=== PATIENT | female | born 1955 | race Caucasian/White ===

== ENCOUNTER 2016-06-05 09:31 | Inpatient (IN) | payer OTHER ==
[~2016-06-05] VITALS: Ht 157.5 cm; Wt 74.8 kg
[~2016-06-05 09:31] MED LIST: ALPRAZOLAM0.5 MG PO; ASPIRIN EC81 M1 PO; CRESTOR40 M1 PO; FOSAMAX10 MG PO; GOOD SENSE ASP325 MG PO; IMITREX50 MG PO; LEXAPRO 10MG10 MG PO; MAGNESIUM200 MG PO; PERCOCET 325 MG1 TA2 PO; VITAMIN B225 MG PO; VITAMIN D31000 IU PO
--- NOTE | 2016-06-05 09:35 | NUR ---
TO EKG ALCMARTA
--- NOTE | 2016-06-05 09:43 | NUR ---
PT TO ED C/O WEAKNESS, HEADACHE AND MULTIPLE FALLS LATELY. STATES "I'VE BEEN WOBBLY". STATES LAST FALL WAS AT 0400 THIS AM. STATES SHE IS UNSURE IF SHE WAS DIZZY PRIOR TO FALLING BECAUSE IT WAS DARK. STATES SHE HIT HER HEAD ON AN END TABLE. UNSURE IF ANY LOC. ALSO C/O NAUSEA. EKG DONE. PT TEARFUL.
--- NOTE | 2016-06-05 09:57 | ED SYNCOPE COMPLAINT ---
History of Present Illness General Chief Complaint: General Adult Stated Complaint: ?SYNCOPE LAST PM; DOESNT REMEMBER FALLING Source: patient Exam Limitations: no limitations Vital Signs & Intake/Output Vital Signs & Intake/Output Vital Signs Date Time Temp Pulse Resp B/P Pulse O2 O2 Flow FiO2 Ox Delivery Rate 06/07 0609 98.1 74 20 130/60 94 CPAP 06/06 2240 94 06/06 2229 98.9 90 18 135/66 94 ED Intake and Output 06/07 0000 06/06 1200 Intake Total 2760 450 Output Total 475 200 Balance 2285 250 Intake, IV 900 450 Intake, Oral 1860 Number 0 Bowel Movements Output, Urine 475 200 Allergies Coded Allergies: codeine (NAUSEA 06/05/16) Reconcile Medications Alendronate Sodium 70 MG TABLET 1 TAB PO QSUN OSTEOPOROSIS (Reported) in the morning, at least 30 minutes before the first food, beverage, or medication of the day Alprazolam 0.5 MG TABLET 1 TAB PO BID PRN ANXIETY (Reported) Aspirin (Ecotrin*) 81 MG TABLET.DR 1 TAB PO DAILY Heart (Reported) Cholecalciferol (Vitamin D3) (Vitamin D3) 3,000 UNIT TABLET 1 TAB PO DAILY Supplement (Reported) Clonazepam 1 MG TABLET 2 TAB PO QPM ANXIETY (Reported) Fluoxetine HCl (Prozac) 40 MG CAPSULE 1 CAP PO DAILY Mental Health (Reported) Lamotrigine 200 MG TABLET 1 TAB PO QPM MENTAL HEALTH (Reported) Rizatriptan Benzoate (Maxalt) 10 MG TABLET 1 TAB PO AD PRN MIGRAINE (Reported ) Rosuvastatin Calcium (Crestor) 20 MG TABLET 1 TAB PO DAILY CHOLESTEROL ( Reported) Triage Note: PT TO ED C/O WEAKNESS, HEADACHE AND MULTIPLE FALLS LATELY. STATES "I'VE BEEN WOBBLY". STATES LAST FALL WAS AT 0400 THIS AM. STATES SHE IS UNSURE IF SHE WAS DIZZY PRIOR TO FALLING BECAUSE IT WAS DARK. STATES SHE HIT HER HEAD ON AN END TABLE. UNSURE IF ANY LOC. ALSO C/O NAUSEA. EKG DONE. PT TEARFUL. Triage Nurses Notes Reviewed? yes HPI: Patient presents for evaluation of a multiple falls this weekend. Patient in fact states she had 4 falls with no apparent loss of consciousness. 1 fall occurred after coming out of the bathroom, one occurred while getting out of bed , one occurred while standing at a counter require her to be caught by her , the last episode neither the patient or her can recall the circumstances. Patient's last fall was about 4:00 this morning. Patient is complaining of a diffuse moderate intensity headache with associated nausea, with left eye blurry vision and floaters. Patient was treated last week for the URI and a UTI and has been taking cough medication for this. Patient denies any chest pain or shortness of breath while at rest. She denies drug or alcohol use. Past History Travel History Traveled to [place] past 21 day No Medical History Any Pertinent Medical History? see below for history Neurological: NONE Cardiovascular: hypertension, hyperlipidemia Respiratory: NONE Gastrointestinal: NONE Hepatic: NONE Renal: nephrectomy Musculoskeletal: osteoporosis Psychiatric: anxiety Endocrine: NONE Blood Disorders: NONE Cancer(s): renal cancer History of MRSA: No History of VRE: No History of CDIFF: No Influenza Vaccine: 11/26/14 Surgical History Surgical History: unobtainable Psychosocial History Who do you live with Spouse What is your primary language Swedish Tobacco Use: Quit >30 days ago ETOH Use: denies use Illicit Drug Use: denies illicit drug use Family History Hx Contributory? No Review of Systems Review of Systems Constitutional: Reports: no symptoms. EENTM: Reports: no symptoms. Respiratory: Reports: no symptoms. Cardiovascular: Reports: no symptoms. GI: Reports: see HPI. Genitourinary: Reports: no symptoms. Musculoskeletal: Reports: no symptoms. Skin: Reports: no symptoms. Neurological/Psychological: Reports: headache. All Other Systems: Reviewed and Negative Physical Exam Physical Exam Cranial Nerves: see below Comments: Gen.: Well-nourished, well-developed, no acute respiratory distress. Head: Normocephalic, atraumatic. Eyes: Normal inspection bilaterally Ears: Normal inspection bilaterally Nose: Normal inspection Throat/mouth : Moist mucosa Neck: Supple, full range of motion, no goiter Heart: Regular rate and rhythm, no murmurs rubs or gallops Lungs: Clear to auscultation bilaterally with normal air entry Chest: Nontender Back: Normal range of motion Abdomen: Soft, nontender, nondistended, normal bowel sounds Extremities: Normal range of motion grossly, equal radial pulses, no cyanosis clubbing or edema Neurologic: Cranial nerves grossly intact, speech is clear Skin: warm and dry Psychiatric: Calm, cooperative, no apparent delusions or hallucinations Core Measures ACS in differential dx? 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 06/06 2140 Complete Change service to 06/06 1610 Active Laboratory Tests 06/07/16 0640: Anion Gap 11, Estimated GFR > 60, BUN/Creatinine Ratio 14.3, Total Bilirubin 0.5 , Direct Bilirubin 0.4, AST 93 H, ALT 147 H, Alkaline Phosphatase 338 H, Total Protein 5.5 L, Albumin 3.1 L, CBC w Diff NO MAN DIFF REQ, RBC 4.60, MCV 86.4, MCH 28.5, RDW 14.9 H, MPV 8.1, Gran % 73.7, Lymphocytes % 16.3 L, Monocytes % 3.7, Eosinophils % 5.7 H, Basophils % 0.6, Absolute Granulocytes 4.0, Absolute Lymphocytes 0.9 L, Absolute Monocytes 0.2, Absolute Eosinophils 0.3, Absolute Basophils 0, PUBS MCHC 32.9 L, ESR Westergren 14 Diagnostic Imaging: Discussed w/RAD: CT Scan. Radiology Impression: PATIENT: JANET ROWLEY PRESENT AGE: 61 PATIENT ACCOUNT NO: [id number] : 54 LOCATION: [facility] ORDERING PHYSICIAN: CHANTE WISEMAN MD SERVICE DATE: 06/05/16 EXAM TYPE: CAT - CT HEAD WO IV CONTRAST EXAMINATION: CT HEAD WITHOUT CONTRAST CLINICAL INFORMATION: History of falls and headache. COMPARISON: MRI of the head from 07/2014. Head CT from 05/29/2008. TECHNIQUE: Contiguous axial imaging was performed from the skull base to vertex without intravenous administration of contrast. DLP: 600.71 mGy-cm FINDINGS: The brain parenchyma has normal attenuation with well-preserved nichole-white matter differentiation. No evidence of an acute major vascular territory infarction. No cerebral edema, intracranial hemorrhage, extra-axial fluid collection, focal mass effect or midline shift. The ventricles have normal size and configuration. No acute findings within the posterior fossa. The calvarium is intact and the visualized paranasal sinuses, mastoid air cells and middle ear cavities are well aerated. The examined orbits and globes are normal. Dysplastic appearance of the mandibular condyles and old intra-articular ossific body within the left temporomandibular joint. IMPRESSION : No acute intracranial pathology. DICTATED BY: DENISE MTZ MD DATE/TIME DICTATED:06/05/161120 POULTRY PICKER:GUMARO DATE/TIME TRANSCRIBED:1120 CONFIDENTIAL, DO NOT COPY WITHOUT APPROPRIATE AUTHORIZATION. < Electronically signed in Other Vendor System> SIGNED BY: DENISE MTZ MD 06/05/161128, PATIENT: JANET ROWLEY PRESENT AGE: 61 PATIENT ACCOUNT NO: [id number] : 54 LOCATION: [facility] ORDERING PHYSICIAN: CHANTE WISEMAN MD SERVICE DATE: 06/05/16 EXAM TYPE: CAT - CT ABD & PELVIS W IV CONTRAST EXAMINATION: CT ABDOMEN AND PELVIS WITH CONTRAST CLINICAL INFORMATION: Multiple falls. Elevated liver enzymes. COMPARISON: Ultrasound abdomen 05/29/2014 TECHNIQUE: Multidetector volumetric imaging was performed of the abdomen and pelvis after the IV administration of 75 mL of Optiray 320 intravenous contrast. Sagittal and coronal reformatted images were obtained on the technologist's workstation. DLP: 327.96 mGy-cm FINDINGS: LUNG BASES: The visualized lung bases are unremarkable. LIVER, GALLBLADDER, AND BILIARY TREE: The liver is normal in size, shape, and attenuation. No suspicious focal hepatic lesion or biliary ductal dilatation is present. There is a cyst in the left lobe liver adjacent to the gallbladder fossa unchanged since prior ultrasound. The gallbladder is unremarkable with no evidence of radiopaque gallstones, gallbladder wall thickening, or obvious pericholecystic inflammatory changes. PANCREAS: Unremarkable. SPLEEN: Unremarkable. ADRENAL GLANDS: Unremarkable. KIDNEYS AND URETERS: 1 cm coarse calcification at the inferior cortical surface of the left kidney with an associated cortical scar. The kidneys are normal in size, shape, and attenuation. No hydronephrosis, hydroureter, or calculi seen. No perinephric stranding. BLADDER: Unremarkable. GASTROINTESTINAL TRACT: There is scattered diverticula of the left colon without diverticulitis. No acute change of the bowel. No bowel obstruction. No bowel wall thickening or edema. Moderate volume of stool in the colon. The appendix is normal. The small bowel loops are normal. ABDOMINAL WALL: No significant hernia is appreciated. LYMPH NODES: Normal. VASCULAR: Scattered vascular wall calcifications of the abdominal aorta without aneurysm. PELVIC VISCERA: Uterus is absent. There is no adnexal abnormality. OSSEOUS STRUCTURES: Unremarkable. IMPRESSION: No acute abnormality CT scan abdomen pelvis. DICTATED BY: MARCELA ALCANTAR MD DATE/TIME DICTATED:06/05/161534 POULTRY PICKER:GUMARO DATE/TIME TRANSCRIBED:06/05/161534 CONFIDENTIAL, DO NOT COPY WITHOUT APPROPRIATE AUTHORIZATION. <Electronically signed in Other Vendor System> SIGNED BY: MARCELA ALCANTAR MD 06/05/16 1548 Initial ED EKG: NSR, rate (95) Prior EKG: unchanged Comments: 06/05/2016 4:42:57 PM I have updated on Janet on her test results including the elevation in liver function studies. She adamantly denies any Tylenol use or alcohol use. I've paged GI. 06/05/2016 6:16:47 PM patient's case discussed with Dr. Carver, reveals the patient's liver function studies should be monitored. There appears to be no urgent intervention necessary at this time. Departure Departure Disposition: STILL A PATIENT Condition: Stable Clinical Impression Primary Impression: Transaminitis Secondary Impressions: Elevated alkaline phosphatase level, Elevated bilirubin, Frequent falls Referrals: DA OLIVARES MD (PCP/Family) Departure Forms: Customer Survey General Discharge Information Admission Note Spoke With: MORIS SON MD Documentation of Exam: Documentation of any treatments & extenuating circumstances including Concerns Regarding Discharge (functional status, medication knowledge or non-compliance, living conditions, etc.) that warrant an admission rather than observation: Patient has elevations in transaminases, alkaline phosphatase and total bilirubin of an unclear etiology. This patient's the patient at risk of coagulopathy and liver failure with ascites fluid retention and third spacing. Since the etiology of the patient's liver enzyme elevations is unclear, it is impossible to predict if she will improve or worsen. In addition the patient has experienced frequent falls over the past few days making her a poor candidate for outpatient testing and treatment. I feel the patient would be at high risk of further falling with subsequent injury if outpatient management were attempted. She would likely return in worse clinical condition. I feel she now requires hospitalization for GI consultation and serial transaminases alkaline phosphatase and total bilirubin levels. Additional evaluation of the patient's hepatobiliary system should be obtained, such as a HIDA scan. In addition patient should have a physical therapy consultation for evaluation of her frequent falls. Patient will likely require short-term rehabilitation for gait stabilization and the ability to fulfill ADLs and return safely home. I feel Janet will require a multiple day hospitalization. Documentation of any treatments & extenuating circumstances including Concerns Regarding Discharge (functional status, medication knowledge or non-compliance, living conditions, etc.) that warrant an admission rather than observation: Patient has elevations in transaminases, alkaline phosphatase and total bilirubin of an unclear etiology. This patient's the patient at risk of coagulopathy and liver failure with ascites fluid retention and third spacing. Since the etiology of the patient's liver enzyme elevations is unclear, it is impossible to predict if she will improve or worsen. In addition the patient has experienced frequent falls over the past few days making her a poor candidate for outpatient testing and treatment. I feel the patient would be at high risk of further falling with subsequent injury if outpatient management were attempted. She would likely return in worse clinical condition. I feel she now requires hospitalization for GI consultation and serial transaminases alkaline phosphatase and total bilirubin levels. Additional evaluation of the patient's hepatobiliary system should be obtained, such as a HIDA scan. In addition patient should have a physical therapy consultation for evaluation of her frequent falls. Patient will likely require short-term rehabilitation for gait stabilization and the ability to fulfill ADLs and return safely home. I feel Janet will require a multiple day hospitalization.
[2016-06-05 10:02] LABS: ABSOLUTE BASOPHIL COUNT 0 /CUMM (0.0-0.2); ABSOLUTE EOSINOPHIL COUNT 0.1 /CUMM (0.0-0.7); ABSOLUTE GRANULOCYTE CT 8.7 /CUMM (1.4-6.5); ABSOLUTE LYMPH COUNT 0.3 /CUMM (1.2-3.4); ABSOLUTE MONOCYTE COUNT 0.1 /CUMM (0.10-0.60); BASOPHIL % 0 % (0.0-2.0); EOSINOPHIL % 1.1 % (0-5); HEMATOCRIT 41.2 % (37-47); MEAN CORPUSCULAR HGB 28.7 PG (27.0-31.0); MEAN CORPUSCULAR HGB CONC 33.6 G/DL (33.0-37.0); MEAN CORPUSCULAR VOLUME 85.6 FL (81.0-99.0); MEAN PLATELET VOLUME 7.5 FL (7.4-10.4); PLATELET COUNT 188 /CUMM (130-400); RBC DISTRIBUTION WIDTH 14.2 % (11.5-14.5); RED BLOOD CELL CT 4.81 /CUMM (4.20-5.40); WHITE BLOOD CELL COUNT 9.1 /CUMM (4.8-10.8)
--- NOTE | 2016-06-05 10:59 | NUR ---
ASSIST TO BEDSIDE COMMODE WITH MINIMAL ASSIST, GAIT STABLE, PT STATING "I'VE BEEN ON ANTIBIOTICS SINCE SUNDAY FOR UTI", "IT JUST FEELS LIKE MY LEGS GIVE OUT". REMAINS AT BEDSIDE.
--- NOTE | 2016-06-05 11:14 | NUR ---
URINE SPECIMEN OBTAIN AND SENT TO LAB
--- NOTE | 2016-06-05 11:29 | CT SCAN REPORT ---
EXAMINATION: CT HEAD WITHOUT CONTRAST CLINICAL INFORMATION: History of falls and headache. COMPARISON: MRI of the head from 08/31/2014. Head CT from 05/29/2008. TECHNIQUE: Contiguous axial imaging was performed from the skull base to vertex without intravenous administration of contrast. DLP: 600.71 mGy-cm FINDINGS: The brain parenchyma has normal attenuation with well-preserved nichole-white matter differentiation. No evidence of an acute major vascular territory infarction. No cerebral edema, intracranial hemorrhage, extra-axial fluid collection, focal mass effect or midline shift. The ventricles have normal size and configuration. No acute findings within the posterior fossa. The calvarium is intact and the visualized paranasal sinuses, mastoid air cells and middle ear cavities are well aerated. The examined orbits and globes are normal. Dysplastic appearance of the mandibular condyles and old intra-articular ossific body within the left temporomandibular joint. IMPRESSION: No acute intracranial pathology.
[2016-06-05] MEDS ORDERED: ALENDRONATE SOD70 M2 PO (13:05)
[2016-06-05] MEDS ORDERED: PHENAZOPYRIDIN200 M3 PO (13:06)
[2016-06-05] MEDS ORDERED: NITROFURANTOIN100 M6 PO (13:06)
[2016-06-05] MEDS ORDERED: FLUOXETINE HCL40 M1 PO (13:07)
[2016-06-05] MEDS ORDERED: VITAMIN D31000 UNI1 PO (13:08)
[2016-06-05] MEDS ORDERED: RIBOFLAVIN50 MG PO (13:08)
[2016-06-05] MEDS ORDERED: VITAMIN B-121000 MC3 PO (13:08)
[2016-06-05] MEDS ORDERED: LAMOTRIGINE200 M2 PO (13:09)
[2016-06-05] MEDS ORDERED: MAGNESIUM400 M1 PO (13:09)
[2016-06-05] MEDS ORDERED: CRESTOR20 M2 PO (13:09)
[2016-06-05] MEDS ORDERED: ALPRAZOLAM0.5 M4 PO (13:10)
[2016-06-05] MEDS ORDERED: MAXALT10 M1 PO (13:10)
[2016-06-05] MEDS ORDERED: CLONAZEPAM1 M2 PO (13:10)
[2016-06-05] MEDS ORDERED: PRAZOSIN HCL1 M1 (13:47)
[2016-06-05] MEDS ORDERED: GABAPENTIN300 M2 (13:47)
[2016-06-05] MEDS ORDERED: MONTELUKAST SOD10 M1 PO (13:48)
--- NOTE | 2016-06-05 14:49 | NUR ---
MED WITH TYLENOL 975MG PO, TOLERATED WELL.
--- NOTE | 2016-06-05 14:57 | NUR ---
PT SITTING UP IN BEDSIDE CHAIR FOR COMFORT, AWAITING CT. REMAINS AT BEDSIDE.
--- NOTE | 2016-06-05 15:35 | NUR ---
ASSUMED CARE OF PT, PT REPORTING FEELING "WOBBLY" OVER PAST SEVERAL DAYS, REPORTING FALLS WELL, UNSURE OF LOC, UNABLE TO SAY IF SHE HAS ASSOCIATED DIZZINESS WITH FALLS. DENIES ANY CP, PALPITATIONS, NAUSEA OR VOMITING.
--- NOTE | 2016-06-05 15:48 | CT SCAN REPORT ---
EXAMINATION: CT ABDOMEN AND PELVIS WITH CONTRAST CLINICAL INFORMATION: Multiple falls. Elevated liver enzymes. COMPARISON: Ultrasound abdomen 05/29/2014 TECHNIQUE: Multidetector volumetric imaging was performed of the abdomen and pelvis after the IV administration of 75 mL of Optiray 320 intravenous contrast. Sagittal and coronal reformatted images were obtained on the technologist's workstation. DLP: 327.96 mGy-cm FINDINGS: LUNG BASES: The visualized lung bases are unremarkable. LIVER, GALLBLADDER, AND BILIARY TREE: The liver is normal in size, shape, and attenuation. No suspicious focal hepatic lesion or biliary ductal dilatation is present. There is a cyst in the left lobe liver adjacent to the gallbladder fossa unchanged since prior ultrasound. The gallbladder is unremarkable with no evidence of radiopaque gallstones, gallbladder wall thickening, or obvious pericholecystic inflammatory changes. PANCREAS: Unremarkable. SPLEEN: Unremarkable. ADRENAL GLANDS: Unremarkable. KIDNEYS AND URETERS: 1 cm coarse calcification at the inferior cortical surface of the left kidney with an associated cortical scar. The kidneys are normal in size, shape, and attenuation. No hydronephrosis, hydroureter, or calculi seen. No perinephric stranding. BLADDER: Unremarkable. GASTROINTESTINAL TRACT: There is scattered diverticula of the left colon without diverticulitis. No acute change of the bowel. No bowel obstruction. No bowel wall thickening or edema. Moderate volume of stool in the colon. The appendix is normal. The small bowel loops are normal. ABDOMINAL WALL: No significant hernia is appreciated. LYMPH NODES: Normal. VASCULAR: Scattered vascular wall calcifications of the abdominal aorta without aneurysm. PELVIC VISCERA: Uterus is absent. There is no adnexal abnormality. OSSEOUS STRUCTURES: Unremarkable. IMPRESSION: No acute abnormality CT scan abdomen pelvis.
--- NOTE | 2016-06-05 15:52 | NUR ---
AMMONIA LEVEL DRAWN AND SENT TO LAB ON ICE.
--- NOTE | 2016-06-05 17:54 | NUR ---
PT RESTING COMFORTABLY, AWAITING POC FROM DR WISEMAN
--- NOTE | 2016-06-05 18:24 | NUR ---
PT AND FAMILY VERY AGITATED ABOUT WAIT TIME, DIET TRAY ORDERED, ANDRA MST TO BEDSIDE TO DISCUSS DIET TRAY ORDERED
--- NOTE | 2016-06-05 20:10 | History & Physical ---
JUSTICECHAYOJOSE 06/05/162009: General Information and HPI MD Statement: I have seen and personally examined TAWANNA ROWLEY and documented this H&P. The patient is a 61 year old F who presented with a patient stated chief complaint of weakness and falls. Source of Information: patient Exam Limitations: no limitations History of Present Illness: This is a 61-year-old female with past medical history significant for migrainous headache, allergies, hypertension, hyperlipidemia, osteoporosis, anxiety, renal cancer status post nephrectomy, depression, nerve pain, recent UTI on nitrofurantoin, carotid artery stenosis status post carotid endarterectomy, obstructive sleep apnea presented to hospital with chief complaint of multiple falls and generalized weakness for 3 days. According to the patient, she had 4 falls with no apparent loss of consciousness. 1 fall occurred after coming out of the bathroom, one occurred while getting out of bed, one occurred while standing at a counter, the last episode neither the patient or her can recall the circumstances. Patient's last fall was about 4:00 this morning. Denied any loss of consciousness. She reports dizziness/lightheadedness associated with the event. She feels her legs were so weak and she gave up. She has one episode of hitting head to the floor. She denies any palpitations or racing of heart. no Syncopal episodes. Patient reported history of upper respiratory tract infection, pinkeye 1 week ago. She went to her primary care doctor and she was given cough suppressants. Also patient had burning sensation of urine 4 days ago for which she went to urgent care and she was given nitrofurantoin and pyridium. She took 3 days of nitrofurantoin for UTI. Of note patient has history of migrainous headaches. According to her, anxiety triggers her migrainous attack. She reports one-two attacks per week which last for couple of hours. She uses rizatriptan for migrainous headache. Episodes of nausea and visual aura associated with migraine episodes. She denied any fever, chills, chest pain, racing of heart, difficulty breathing, cough, nausea, vomiting, abdominal pain, change in bladder or bowel habits. She denies any weakness or numbness. She denied any urinary symptoms. No flank pain no frequency or dysuria or urgency. Denies any sick contacts or travel history. She denies smoking history. However she quit alcohol 20 years ago. Denies any illicit drug Use. She denies any Tylenol abuse. Allergies/Medications Allergies: Coded Allergies: codeine (NAUSEA 06/05/16) Compliance With Home Meds: GOOD Past History Travel History Traveled to [place] past 21 day No Medical History Neurological: NONE Cardiovascular: hypertension, hyperlipidemia Respiratory: NONE Gastrointestinal: NONE Hepatic: NONE Renal: nephrectomy Musculoskeletal: osteoporosis Psychiatric: anxiety Endocrine: NONE Blood Disorders: NONE Cancer(s): renal cancer History of MRSA: No History of VRE: No History of CDIFF: No Influenza Vaccine: 11/26/14 Surgical History Surgical History: unobtainable Past Family/Social History Psychosocial History Smoking Status: Never Smoked ETOH Use: denies use Illicit Drug Use: denies illicit drug use Review of Systems Review of Systems Constitutional: Reports: malaise, weakness. Denies: chills, diaphoresis, fever, unexplained weight loss. EENTM: Denies: visual changes, hearing changes. Cardiovascular: Denies: chest pain, edema, orthopena, palpitations, syncope. Respiratory: Denies: cough, hemoptysis, short of breath, sputum production. GI: Denies: abdominal pain, constipation, diarrhea, nausea, vomiting. Genitourinary: Denies: dysuria, frequency, urgency. Musculoskeletal: Denies: back pain, joint pain. Skin: Denies: no symptoms. Neurological/Psychological: Reports: anxiety, headache. Denies: ataxia, confusion, depressed, numbness, tingling, tremors. Exam & Diagnostic Data Last 24 Hrs of Vital Signs/I&O Vital Signs Date Time Temp Pulse Resp B/P Pulse O2 O2 Flow FiO2 Ox Delivery Rate 06/06 0330 110/58 06/06 0144 97 Room Air 06/05 2342 85 118/69 06/05 2326 97.1 85 20 118/69 94 Room Air 06/05 2227 Room Air 06/05 2007 98.0 90 18 122/66 95 Room Air 06/05 1738 97.6 90 18 120/63 95 Room Air 06/05 1449 97.1 06/05 0942 97.1 92 20 159/68 95 Room Air Intake & Output 06/06 0800 06/06 0000 06/05 1600 Intake Total Output Total 250 Balance -250 Output, Urine 250 Patient 74.843 kg 74.843 kg Weight Physical Exam General Appearance Alert, Oriented X3, Cooperative, No Acute Distress Skin No Rashes, No Breakdown HEENT Atraumatic, PERRLA, EOMI, Mucous Membr. moist/pink Neck Supple, No JVD Lymphatic Axillary nl, Cervical nl Cardiovascular Regular Rate, Normal S1, Normal S2, No Murmurs Lungs Clear to Auscultation, Normal Air Movement Abdomen Normal Bowel Sounds, Soft, No Hepatospenomegaly, murphys positive Neurological Normal Speech, Strength at 5/5 X4 Ext, Normal Tone, Sensation Intact, Cranial Nerves 3-12 NL, Reflexes 2+ Extremities No Clubbing, No Cyanosis, No Edema, Normal Pulses Vascular Normal Pulses, Pulses Symmetrical Last 24 Hrs of Labs/Aaron: Laboratory Tests 06/05/16 1551: Ammonia < 9 L 06/05/16 1100: Urine Opiates Screen < 100.00, Methadone Screen 43, Barbiturate Screen < 60, Ur Phencyclidine Scrn < 6.00, Amphetamines Screen < 100, U Benzodiazepines Scrn 124 , Urine Cocaine Screen < 50, Urine Cannabis Screen < 5.00, Urinalysis LIGHT H, Urine Color YEL, Urine Clarity CLEAR, Urine pH 7.0, Ur Specific [place] <= 1.005 , Urine Protein NEG, Urine Ketones NEG, Urine Nitrite NEG, Urine Bilirubin NEG, Urine Urobilinogen 0.2, Ur Leukocyte Esterase SMALL H, Ur Microscopic SEDIMENT EXAMINED, Urine RBC RARE, Urine WBC 1-3 H, Ur Epithelial Cells FEW, Urine Bacteria FEW H, Urine Hemoglobin TRACE-INTACT, Urine Glucose NEG 06/05/16 0943: Anion Gap 12, Estimated GFR > 60, BUN/Creatinine Ratio 14.3, Glucose 87, Calcium 9.1, Total Bilirubin 2.0 H, AST 226 H, ALT 216 H, Alkaline Phosphatase 228 H , Creatine Kinase 68, Troponin I < 0.01, C-Reactive Prot, Quant > 9.0 H, Total Protein 6.1 L, Albumin 3.5, Globulin 2.6, Albumin/Globulin Ratio 1.3, Lipase 35 , TSH 1.340, CBC w Diff MAN DIFF ORDERED, RBC 4.81, MCV 85.6, MCH 28.7, RDW 14.2 , MPV 7.5, Gran % 95.0 H, Lymphocytes % 2.8 L, Monocytes % 1.1 L, Eosinophils % 1.1, Basophils % 0 L, Absolute Granulocytes 8.7 H, Segmented Neutrophils 87 H, Band Neutrophils 7 H, Absolute Lymphocytes 0.3 L, Lymphocytes 3 L, Monocytes 2, Absolute Monocytes 0.1 L, Eosinophils 1, Absolute Eosinophils 0.1, Absolute Basophils 0, Platelet Estimate ADEQUATE, Normocytic RBCs VERIFIED, Normochromic RBCs VERIFIED, PUBS MCHC 33.6, Hepatitis A IgM Ab NONREACTIVE, Hep Bs Antigen NONREACTIVE, Hep B Core IgM Ab Conf NONREACTIVE, Hepatitis C Antibody NONREACTIVE, Serum Alcohol < 10.0 06/05/16 0942: Infectious [place] Titer NEGATIVE Microbiology 06/06 0510 URINE ROUT: Urine Culture - RECD Diagnostic Data EKG Results Normal sinus rhythm Assessment/Plan Assessment: This is a 61-year-old female with past medical history significant for migrainous headache, allergies, hypertension, hyperlipidemia, osteoporosis, anxiety, renal cancer status post nephrectomy, depression, nerve pain, recent UTI on nitrofurantoin, carotid artery stenosis status post carotid endarterectomy, obstructive sleep apnea presented to hospital with chief complaint of multiple falls and generalized weakness for 3 days. Per patient , she has been experiencing multiple episodes of falls recently secondary to weakness without any syncopal episode or loss of consciousness. Vital signs on admission: Temperature 97.5, pulse 85, respiratory 20, blood pressure 118/69, oxygen saturation 94% on room air. Pertinent lab data on admission: CBC unremarkable, total bilirubin elevated, AST 226, AST 216, alkaline phosphatase 225, ammonia <9 , CRP>9. Hepatitis panel negative. UA positive for leukocyte esterase, urine by PCP and urine bacteria. Imaging on admission: Head CT negative. CT abdomen and pelvis: No acute abnormality. Problem list 1. Generalized weakness status post fall 2. Transaminitis 3. UTI on nitrofurantoin 4. Migraine headache 5. Allergies 6. Hypertension 7. Hyperlipidemia 8. Osteoporosis 9. Anxiety 10. Depression Generalized weakness status post fall Per patient , she has been experiencing multiple episodes of falls recently secondary to weakness without any syncopal episode or loss of consciousness. Denies any palpitations or racing of heart or chest pain. Denies any history of heart disease. * Admitted to general medical floor for further management * Monitor vitals closely * Check orthostats * Possibly from migrainous attacks/anxiety. * Fall precautions * PT * OT * Will check CPK Transaminitis Patient presented with generalized weakness. However labs showed transaminitis with bilirubin 2, AST 226, ALT 216, alkaline phosphatase 228. CAT scan abdomen- no acute pathology. She denies any [id number] Tylenol use. However she quit alcohol 20 years ago. Most possibly ascending cholangitis * Admitted for further management and monitoring * Monitor vitals closely * Repeat LFTs * Hepatitis panel negative * Check differential bilirubin * Gentle IV hydration * We will recheck LFTs in the morning * Right upper quadrant ultrasound * We'll hold statins for transaminitis UTI Patient had urinary symptoms. Urine analysis was positive. She was started on nitrofurantoin at the urgent care. * Patient completed a three-day course of nitrofurantoin * We'll continue nitrofurantoin for 4 more days Migrainous headache Patient usually rizatriptan 10 mg as needed Lamotrigine 200 mg daily Allergies Montelukast 10 mg daily Hyperlipidemia Crestor 20 mg Hold Crestar for transaminitis Osteoporosis Usually takes Fosamax 70 mg every Sunday Anxiety Xanax as needed Insomnia Clonazepam 2 mg at bedtime Depression Fluoxetine 40 daily obstructive sleep apnea Uses CPAP at home dvt Prophylaxis subcutaneous Lovenox Full Code Regular diet As Ranked By This Provider Problem List: 1. Transaminitis 2. Elevated bilirubin 3. Elevated alkaline phosphatase level 4. Frequent falls Core Measures/Miscellaneous Acute Coronary Syndrome ACS Diagnosis: No Cerebrovascular Accident CVA/TIA Diagnosis: No Congestive Heart Failure CHF Diagnosis: No Venous Thromboembolism VTE Risk Factors: Age > 40 No [facility] VTE prophylaxis d/t: No contraindications No VTE Pharm Prophylaxis d/t: No contraindications VTE Diagnosis: No VTE Type: NONE VTE Confirmed by (Test): NONE Severe Sepsis Severe Sepsis Present: No Septic Shock Septic Shock Present: No Miscellaneous Documentation Attending Case Discussed With: MORIS SON MD Primary Care Physician: DA OLIVARES MD A Patient sees these Specialists none Level of Patient Care: General Medicine INDIRA TERRY 06/05/162128: General Information and HPI Allergies/Medications Home Med list Alendronate Sodium 70 MG TABLET 1 TAB PO QSUN OSTEOPOROSIS (Reported) in the morning, at least 30 minutes before the first food, beverage, or medication of the day Alprazolam 0.5 MG TABLET 1 TAB PO BID PRN ANXIETY (Reported) Aspirin (Ecotrin*) 81 MG TABLET.DR 1 TAB PO DAILY Heart (Reported) Cholecalciferol (Vitamin D3) (Vitamin D3) 3,000 UNIT TABLET 1 TAB PO DAILY Supplement (Reported) Clonazepam 1 MG TABLET 2 TAB PO QPM ANXIETY (Reported) Fluoxetine HCl (Prozac) 40 MG CAPSULE 1 CAP PO DAILY Mental Health (Reported) Lamotrigine 200 MG TABLET 1 TAB PO QPM MENTAL HEALTH (Reported) Nitrofurantoin Monohyd/M-Cryst (Nitrofurantoin [place]-Mcr 100 MG) 100 MG CAPSULE 1 CAP PO BID ANTIBIOTIC (Reported) Rizatriptan Benzoate (Maxalt) 10 MG TABLET 1 TAB PO AD PRN MIGRAINE (Reported ) Rosuvastatin Calcium (Crestor) 20 MG TABLET 1 TAB PO DAILY CHOLESTEROL ( Reported) Resident Review Statement Resident Statement: examined this patient, discussed with pharmacy grad intern, agreed with pharmacy grad intern, reviewed EMR data (avail), reviewed images Other Findings: This is a 61-year-old lady with past medical history significant for migraine headache, hypertension, hyperlipidemia, osteoporosis, anxiety, recent UTI on Nitrofurantoin presents to the hospital with chief complaint of weakness. Per patient , she has been experiencing multiple episodes of falls recently secondary to weakness without any syncopal episode or loss of consciousness. Please see above for more details. Vital signs on admission: Temperature 97.5, pulse 85, respiratory 20, blood pressure 118/69, oxygen saturation 94% on room air. Physical exam at the time of admission:AAO 3, NAD. HEENT: H NCAT. PERRLA, EOMI. Dry mucous membranes. Normal pharynx. Neck: Supple, no JVD, no carotid bruit, no thyromegaly, no lymphadenopathy. CV: RRR, no murmur. Lungs: CTA BL. Abdomen: Normal bowel sounds, Soft, ND, right upper quadrant abdominal tenderness with positive Juarez sign. Extremities: No lower extremity edema. Pulses intact and symmetrical Neurology: Normal speech, cranial nerves III-12 intact, normal sensation and reflexes. Pertinent lab data on admission: CBC unremarkable, total bilirubin elevated, AST 226, AST 216, alkaline phosphatase 225, ammonia <9, CRP>9. Hepatitis panel negative. UA positive for leukocyte esterase, urine by PCP and urine bacteria. Imaging on admission: Head CT negative. CT abdomen and pelvis: No acute abnormality. Problem list/plan: #Weakness: No reported dizziness, loss of consciousness, palpitation. Will check CPK, orthostatics. #Transaminitis: Likely secondary to ascending cholangitis. Patient quit EtOH use 25 years ago. Hepatitis panel negative. We'll check differential bilirubin , CRP, abdominal ultrasound, will maintain the patient on gentle IV hydration. Recheck levels in the morning. If blood pressure drops or patient becomes febrile would initiate IV Unasyn. Hold statins given transaminitis. #UTI on Nitrofurantoin: The patient started antibiotic therapy on Sunday. Would continue antibiotic therapy for minimum of 7 days of total antibiotic therapy. #Continue with [employer] clonazepam, fluoxetine, aspirin, alprazolam, lamotrigine #DVT prophylaxis: Subcutaneous Lovenox. #Patient is full code. MORIS SON 06/06/16 0718: Attending MD Review Statement Attending Statement Attending MD Statement: examined this patient, discuss w/resident/PA/MAC ARTIST, agreed w/resident/PA/MAC ARTIST, reviewed EMR data (avail), reviewed images, amended to note Attending Assessment/Plan: CC: Multiple falls PMH: On migraine, anxiety/depression, HTN, HLD, osteoporosis, right-sided CEA, ANIKET Patient came to ER for multiple falls, sent by her . 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 She remembers all the falls, felt a little dizzy, legs giving out before fall. No presyncopal episode, no loss of consciousness during these episodes. Patient complains general malaise, lethargy. Describing as "flulike symptoms". Denies nasal congestion, sinus congestion, cough, chest pain, shortness of breath. Patient is currently on nitrofurantoin for recently diagnosed UTI. Quit alcohol drinking 22 years back. Vitals: Afebrile, pulse, HR, blood pressure, O2 saturation within acceptable range. On examination: A O 3, cooperative, no acute distress, neck supple, no JVD, no lymphadenopathy, mucosa moist, no focal neurological deficit, negative cerebellar signs, no dependent edema, no obvious skin rashes or inflammation CVS : S1-S2, RRR. RS: Clear to auscultate bilaterally. Abdomen: Soft, mild tenderness right upper quadrant with Juarez's sign positive with deep palpation, ND, bowel sounds present. Labs: WBC of 9.1 with 95% of neutrophils and 7 bands, bili 2.0, AST 226, ALT 216 , alkaline phosphatase 228. CT head: No acute intracranial pathology CT abdomen and pelvis with IV contrast: No acute abnormality A and P Patient had multiple falls, on history doesn't appears presyncopal or syncopal. No obvious trauma or open wounds. Patient on multiple medications may be adding to polypharmacy which could be one of the reasons. At the same time patient is incidentally found to have abdominal pain, transaminitis, bandemia. Even though CT abdomen is normal, we still have to rule out biliary pathology. #1 fall #2 transaminitis #3 rule out cholestasis - Admit on gentle medicine floor - Orthostatic vitals and OT PT evaluation for falls, check vitamin B12 level, check 25-hydroxy vitamin D 3 - Right upper quadrant ultrasound - Check CRP, lipase, CPK - Check differential bilirubin - Continue IV and is at 75 mL per hour - Gen. surgery or GI consult according to [facility] abdomen findings - Continue oral nitrofurantoin for recently diagnosed UTI to complete the course for 7 days - Nothing by mouth till right upper quadrant ultrasound results.
--- NOTE | 2016-06-05 21:23 | NUR ---
BED ASSIGNED [id number]
--- NOTE | 2016-06-05 21:44 | NUR ---
REPORT GIVEN TO BARRETT MATTHEW
--- NOTE | 2016-06-05 21:45 | NUR ---
[facility] CALLED FOR TRANSPORT
--- NOTE | 2016-06-05 21:57 | NUR ---
[facility] AT BEDSIDE FOR TRANSPORT. HOUSE STAFF AT BEDSIDE FOR PT EVALUATION. HOUSE STAFF MADE AWARE THAT [facility] IS HERE FOR TRANSPORT. PT HAS BEEN HERE ALL DAY. PER HOUSE STAFF, THEY WILL LET ME KNOW WHEN THEY ARE DONE SO PT CAN GO UPSTAIRS. CHARGE NURSE MADE AWARE
--- NOTE | 2016-06-05 22:54 | NUR ---
PT ARRIVED FROM ER VIA STRETCHER, AMBULATED TO BED WITHOUT DIFFICULTY. NO SKIN BREAKDOWN NOTED, NO INJURIES NOTED. PT C/O HEADACHE BUT NO OTHER PAIN AT THIS TIME. IRONER NOTIFIED OF NEED FOR CPAP ORDER AND MEDS FOR PAIN.WILL MONITOR.
[2016-06-05 23:26] VITALS: BP 118/69
[2016-06-05] MEDS ORDERED: VITAMIN D33000 UNIT PO (23:35)
[2016-06-05 23:42] VITALS: BP 118/69
[2016-06-05] MEDS ORDERED: PROZAC40 M1 PO (23:58)
[2016-06-06 03:30] VITALS: BP 110/58
[2016-06-06 06:25] VITALS: BP 142/53
--- NOTE | 2016-06-06 07:19 | Admission Certification ---
Admission Certification Certification Statement - As attending physician, I certify that at the time of - admission, based on clinical presentation, severity of - symptoms, need for further diagnostic testing and - therapeutic interventions, and risk of adverse outcomes - without in-hospital treatment, in my clinical assessment, - this patient requires an acute hospital stay for a minimum - of two nights or longer. I have also considered psychsocial - factors such as support system, advanced age, financial - issues, cognitive issues, and failed out-patient treatments, - past re-admission history, safety of patient, and lack of - compliance as applicable. Specific rationale supporting this admission is: Multiple falls, transaminitis.
--- NOTE | 2016-06-06 07:42 | PN- Housestaff ---
ARIN FLYNN MD 06/06/16 0742: Subjective Follow-up For: Generalized weakness Multiple mechanical falls Positive head strike Persistent migraine Urinary tract infection Subjective: Patient seen and examined. She is seen lying flat in bed resting comfortably. She appears to be in no acute distress. She admits to feeling persistently ill/ weak with a persistent migraine that is reportedly baseline. She admits to some persistent blurred/double vision since her recent head strike. Otheriwse she has no new subjective complaints. Additionally she denies any fever, chills, chest pain, palpitations, shortness of breath, nausea, vomiting, diarrhea, numbness/tingling. No overnight events reported. Review of Systems Constitutional: Reports: see HPI. Objective Last 24 Hrs of Vital Signs/I&O Vital Signs Date Time Temp Pulse Resp B/P Pulse O2 O2 Flow FiO2 Ox Delivery Rate 06/06 1450 99.4 96 20 132/60 93 Room Air 06/06 1304 Room Air Room Air 06/06 0800 Room Air 06/06 0625 98.0 92 20 142/53 94 Room Air 06/06 0330 110/58 06/06 0144 97 Room Air 06/05 2342 85 118/69 06/05 2326 97.1 85 20 118/69 94 Room Air 06/05 2227 Room Air 06/05 2006 98.0 90 18 122/66 95 Room Air Intake & Output 06/06 1600 06/06 0800 06/06 0000 Intake Total 1980 450 Output Total 475 200 Balance 1505 250 Intake, IV 600 450 Intake, Oral 1380 Number 0 Bowel Movements Output, Urine 475 200 Patient 74.843 kg Weight Physical Exam General Appearance: Alert, Oriented X3, Cooperative, No Acute Distress Other Physical Findings: General - well developed, well nourished elderly woman in no acute distress HEENT - NCAT, PERRL, EOMI, anicteric sclera, dry mucosa CVS - S1, S2 w/o m/g/r/ Resp - CTA bilaterally GI - Soft, nontender, nondistended, bowel sounds intact Neuro - Awake and alert, oriented to person/place/time, CN II - XII grossly, normal speech Ext - normal pulses, no cyanosis/clubbing/edema Current Medications: Current Medications Sig/Epi Start time Last Medication Dose Route Stop Time Status Admin Alprazolam 0.5 MG BID PRN 06/06 0315 AC PO 06/13 0314 Aspirin Buffered 81 MG DAILY 06/06 1000 AC 06/06 PO 1033 Atorvastatin Calcium 80 MG 1700 06/06 1700 CAN PO Clonazepam 2 MG QPM 06/06 2200 AC 06/06 PO 06/13 2159 0016 Enoxaparin Sodium 40 MG DAILY 06/06 1000 AC 06/06 SC 1033 Fluoxetine HCl 40 MG DAILY 06/06 1000 AC 06/06 PO 1033 Lamotrigine 200 MG QPM 06/06 0030 AC 06/06 PO 0047 Naproxen 500 MG Q12P PRN 06/06 1530 AC 06/06 PO 1534 Naproxen 500 MG .STK-MED ONE 06/06 0602 DC PO 06/06 0603 Naproxen 500 MG ONCE ONE 06/06 0600 DC 06/06 PO 06/06 0601 0605 Nitrofurantoin 100 MG BID 06/05 2355 AC 06/06 PO 06/07 2201 0047 Sodium Chloride 1,000 ML Q13H 06/05 2345 DC 06/06 IV 06/06 1244 0018 Last 24 Hrs of Lab/Aaron Results Last 24 Hrs of Labs/Mics: Laboratory Tests 06/06/16 0825: Total Bilirubin 0.7, Direct Bilirubin 0.5 H, AST 153 H, ALT 176 H, Alkaline Phosphatase 261 H, Creatine Kinase 47, Total Protein 5.5 L, Albumin 3.0 L 06/06/16 0600: Lyme Disease Antibody Pending Microbiology 06/06 0510 URINE ROUT: Urine Culture - RECD Assessment/Plan Assessment: 61 year old woman with significant past medical history of migraine headaches, nerve pain, anxiety and depression seen for evaluation of generalized weakness with multiple falls including one headstrike. Patient was in her normal state of health until one week ago when she saw her PCP for evaluation of "pink eye" and an upper respiratory infection for which she received cough suppressants. She admits to urinary frequency/urgency/pain 4 days prior to admission for which she was evaluated at an urgent care center for which she was prescribed Nitrofurantoin and pyridium. She finished three days of the prescription. She reports 4 falls over the past few days and admits to one incident where he legs "gave out" and she suffered a fall where she struck her head. She did not loss consciousness, the fall was unwitnessed, and she denies any bowel/bladder incontinence. ED Course: -Vitals: Temp 97.1 - 98.0, HR 85-92, RR 18-20, BP 110-159/58-69, O2 94-97% on room air -Significant Labs: WBC 91, Hgb/Hct 13.8/41.2, BUN/Cr 10/0.7, T. Bili 2.0, AST/ ALT 226/216, ALK 228, CPK 68, Troponin <0.01, CRP >9.0, Bands 7, Hepatitis panel :negative -Studies: CT head - no acute intracranial pathology, CT Abdomen/Pelvis - no acute abnormalityu Patient was admitted to the general medicine floor for further evaluation of her generalized weakness and transaminitis. Problem List: 1. Generalized weakness Patient reports 4 falls at home including one headstrike where she did not loss consciousness, was unwitnessed, and did not have bowel/bladder incontinence. She describes that falls as her "legs giving out" with no obvious preceeding aura. CT head in the ED was negative for any acute intracranial Pathology. Patient sees neurologist Dr. Flores for management of her migraines. Neurology consult placed determined that patient did not have any obivous evidence of neurologic disease contributing to her current condition and should follow up as an outpatient. -General Medicine -PT evaluation -Neuro consult 2. Transaminitis Baseline liver functions tests from 2009 did no demonstrate any abnormality. Patient states that she has not consumed alcohol in "20 years". She denies excessive acetaminophen use. CRP > 9. Hepatitis panel negative. RUQ US did not demonstrate any acute abnormality. -Daily LFTs -F/U ESR, CPK, [place] Titer 3. History of migraine headaches -Lamictal 200mg PO QPM -Naproxen 500mg PO Q12H PRN - headache 4. Anxiety and depression -Alprazolam 0.5mg PO BID PRN -Clonazepam 2mg PO QPM -Fluoxetine 40mg PO Daily 5. DVT prophylaxis Lovenox 6. Full code status Pain Ratin Pain Location: None Pain Goal: Pain 4 or less Pain Plan: See assessment Tomorrow's Labs & Rationales: CBC, BEP, LFT LEONEL MENJIVAR MD 06/06/16 6726: Attending MD Review Statement Attending Statement Attending MD Statement: examined this patient, discuss w/resident/PA/OPERATIONS AND MAINTENANCE SUPERVISOR, agreed w/resident/PA/OPERATIONS AND MAINTENANCE SUPERVISOR, reviewed EMR data (avail), reviewed images, amended to note Attending Assessment/Plan: The patient was seen and discussed with house staff. She notes recent falls complaining of legs "giving out". States she described both knee pains and muscle pains. Has had several illnesses recently including bronchitis and UTI. LFT's today decreased and RUQ US and CT negative for pathology. Hepatitis serologies also negative. Will check CPK, ESR, & Lyme titer and trend LFT's. Neuro evaluation from Dr. Flores (or coverage). PT/OT evaluation for ambulation.
--- NOTE | 2016-06-06 09:23 | NUR ---
NSG NOTE: PATIENT LEFT FLOOR VIA STRETCHER FOR US ACCOMPANIED BY DISTRIBUTION; PATIENT A/OX3; PATIENT WALKED TO STRETCHER IN HALLWAY ACCOMPANIED BY PHYSICAL THERAPIST; PATIENT'S GAIT WAS STEADY AT THIS TIME; WILL CONT TO MONITOR PATIENTS RETURN;
--- NOTE | 2016-06-06 09:59 | NUR ---
NSG NOTE: PATIENT RETURNED TO FLOOR VIA STRETCHER ACCOMPANIED BY DISTRIBUTION; WILL CONT TO MONITOR
--- NOTE | 2016-06-06 10:44 | ULTRASOUND REPORT ---
EXAMINATION: US ABDOMEN LIMITED CLINICAL INFORMATION: Transaminitis.. COMPARISON: Abdomen ultrasound from 05/29/2014. Abdomen CT from 06/05/2016. TECHNIQUE: Real-time imaging of the right upper quadrant abdominal viscera. FINDINGS: PANCREAS: Normal. ABDOMINAL AORTA: Normal in caliber. LIVER: Liver has normal size and contour. Within the left hepatic lobe, a 1.2 x 1.2 x 1.1 cm cyst containing a thin septation is seen. This cyst measured up to 1.2 cm on 05/29/2014. No interval development of a suspicious hepatic lesion or intrahepatic bile duct dilatation. GALLBLADDER: Normal. The gallbladder is physiologically distended without evidence of stones, sludge, polyps, wall thickening or pericholecystic fluid. COMMON BILE DUCT: Normal in caliber measuring 0.5 cm in diameter. RIGHT KIDNEY: Normal. No hydronephrosis. No renal calculi or focal parenchymal lesions. The kidney measures 10.9 cm in maximum dimension. FREE FLUID: None. IMPRESSION: 1. No evidence of cholelithiasis, cholecystitis or biliary tract obstruction. 2. A septated 1.2 cm cyst of the left lobe of the liver has not significantly changed in size compared to 05/29/2014.
--- NOTE | 2016-06-06 14:33 | NUR ---
OCCUPATIONAL THERAPY NOTE: OT CONSULT RECEIVED AND CHART REVIEWED. PER CONSULTATION WITH PHYSICAL THERAPY, PT IS INDEPENDENT WITH NO OCCUPATIONAL THERAPY NEEDS AT THIS TIME. ACUTE SKILLED OT IS NOT RECOMMENDED. THANK YOU.
[2016-06-06 14:50] VITALS: BP 132/60
--- NOTE | 2016-06-06 16:08 | Cons- Neurology ---
"General Information and HPI Consulting Request Date of Consult: 06/06/16 Requested By: MORIS SON MD Reason for Consult: Falls, weakness, unable to arise Source of Information: patient, old records Exam Limitations: no limitations History of Present Illness: 61-year-old woman reports falling 4 times in the past 4 or 5 days and has been unable to arise without assistance. She describes the knees buckling. No preceding vertigo although she has had a fairly constant lightheaded sensation. No associated palpitations or diaphoresis. 3-4 weeks ago had an upper respiratory illness with feverishness, resolved. 1 full week ago was feeling okay 4-5 days ago began feeling weakness and general malaise. 3 days ago visited the ER or walk-in Center due to dysuria and was found to have a URI, antibiotics started Yesterday admitted after having fallen striking her head rather sharply. No associated numbness or paresthesias in either leg. She does report knee pain bilaterally. No low back pain or neck pain, no bladder or bowel dysfunction. No weakness in the upper extremities. Allergies/Medications Allergies: Coded Allergies: codeine (NAUSEA 06/05/16) Home Med List: Alendronate Sodium 70 MG TABLET 1 TAB PO QSUN OSTEOPOROSIS (Reported) in the morning, at least 30 minutes before the first food, beverage, or medication of the day Alprazolam 0.5 MG TABLET 1 TAB PO BID PRN ANXIETY (Reported) Aspirin (Ecotrin*) 81 MG TABLET.DR 1 TAB PO DAILY Heart (Reported) Cholecalciferol (Vitamin D3) (Vitamin D3) 3,000 UNIT TABLET 1 TAB PO DAILY Supplement (Reported) Clonazepam 1 MG TABLET 2 TAB PO QPM ANXIETY (Reported) Fluoxetine HCl (Prozac) 40 MG CAPSULE 1 CAP PO DAILY Mental Health (Reported) Lamotrigine 200 MG TABLET 1 TAB PO QPM MENTAL HEALTH (Reported) Nitrofurantoin Monohyd/M-Cryst (Nitrofurantoin [place]-Mcr 100 MG) 100 MG CAPSULE 1 CAP PO BID ANTIBIOTIC (Reported) Rizatriptan Benzoate (Maxalt) 10 MG TABLET 1 TAB PO AD PRN MIGRAINE (Reported ) Rosuvastatin Calcium (Crestor) 20 MG TABLET 1 TAB PO DAILY CHOLESTEROL ( Reported) Current Medications: Current Medications Sig/Epi Start time Last Medication Dose Route Stop Time Status Admin Alprazolam 0.5 MG BID PRN 06/06 0315 AC PO 06/13 0314 Aspirin Buffered 81 MG DAILY 06/06 1000 AC 06/06 PO 1033 Atorvastatin Calcium 80 MG 1700 06/06 1700 CAN PO Clonazepam 2 MG QPM 06/06 2200 AC 06/06 PO 06/13 2159 0016 Enoxaparin Sodium 40 MG DAILY 06/06 1000 AC 06/06 SC 1033 Fluoxetine HCl 40 MG DAILY 06/06 1000 AC 06/06 PO 1033 Gabapentin 1,200 MG ONCE ONE 06/05 1645 DC PO 06/05 1646 Lamotrigine 200 MG QPM 06/06 0030 AC 06/06 PO 0047 Naproxen 500 MG Q12P PRN 06/06 1530 AC 06/06 PO 1534 Naproxen 500 MG .STK-MED ONE 06/06 0602 DC PO 06/06 0603 Naproxen 500 MG ONCE ONE 06/06 0600 DC 06/06 PO 06/06 0601 0605 Nitrofurantoin 100 MG BID 06/05 2355 AC 06/06 PO 06/07 2201 0047 Sodium Chloride 1,000 ML Q13H 06/05 2345 DC 06/06 IV 06/06 1244 0018 Review of Systems Review of Systems: ROS: The patient had no constitutional complaints. Vision clear, no diplopia ENT: No vertigo or tinnitus or hearing loss Cardiac: |Chest pain and palpitations denied Respiratory: No dyspnea or wheezing GI: No abdominal pain nausea or diarrhea. 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 Home Smoking Status: Never Smoked ETOH Use: denies use Illicit Drug Use: denies illicit drug use Exam & Diagnostic Data Vital Signs and I&O Vital Signs Date Time Temp Pulse Resp B/P Pulse O2 O2 Flow FiO2 Ox Delivery Rate 06/06 1450 99.4 96 20 132/60 93 Room Air 06/06 1304 Room Air Room Air 06/06 0800 Room Air 06/06 0625 98.0 92 20 142/53 94 Room Air 06/06 0330 110/58 06/06 0144 97 Room Air 06/05 2342 85 118/69 06/05 2326 97.1 85 20 118/69 94 Room Air 06/05 2227 Room Air 06/05 2006 98.0 90 18 122/66 95 Room Air 06/05 1738 97.6 90 18 120/63 95 Room Air Intake & Output 06/06 1600 06/06 0800 06/06 0000 Intake Total 1980 450 Output Total 475 200 Balance 1505 250 Intake, IV 600 450 Intake, Oral 1380 Number 0 Bowel Movements Output, Urine 475 200 Patient 165 lb Weight Physical Exam: On exam the patient appeared generally well and in no distress. No carotid bruits and no cardiac murmur. No peripheral edema Mental status: Alert, attentive, fully oriented, no language errors, recall and general fund of knowledge seem intact Funduscopic unremarkable Visual [place] full , Eye movements full without nystagmus, pupils midsize equal round and reactive to light. Facial movement normal bilaterally Facial sensation normal bilaterally Hearing intact bilaterally Uvula elevates midline Tongue protrusion is midline Shoulder shrug symmetric Motor power and tone normal in all 4 extremities proximally and distally. No atrophy or fasciculation in the lower extremities. No muscular tenderness in the thighs or calves Sensation intact to primary modes Tendon reflexes 2+ and symmetric in arms, at knees and at ankles without pathologic signs Coordination no ataxia Gait arose from bed without assistance. Romberg test normal. With light assist for balance able to walk on heels and on toes . Tandem gait intact for 5 steps Last 48 Hours of Lab Results: Laboratory Tests 06/06 06/06 06/05 0825 0600 1551 Chemistry Total Bilirubin (0.2 - 1.3 mg/dL) 0.7 Direct Bilirubin (< 0.4 mg/dL) 0.5 H AST (14 - 36 U/L) 153 H ALT (9 - 52 U/L) 176 H Alkaline Phosphatase (<127 U/L) 261 H Ammonia (9 - 30 umol/L) < 9 L Creatine Kinase (30 - 135 U/L) 47 Total Protein (6.3 - 8.2 g/dL) 5.5 L Albumin (3.5 - 5.0 g/dL) 3.0 L Serology Lyme Disease Antibody Pending 06/05 06/05 1100 0943 Chemistry Sodium (137 - 145 mmol/L) 137 Potassium (3.5 - 5.1 mmol/L) 3.9 Chloride (98 - 107 mmol/L) 102 Carbon Dioxide (22 - 30 mmol/L) 24 Anion Gap (5 - 16) 12 BUN (7 - 17 mg/dL) 10 Creatinine (0.5 - 1.0 mg/dL) 0.7 Estimated GFR (>60 ml/min) > 60 BUN/Creatinine Ratio (7 - 25 %) 14.3 Glucose (65 - 99 mg/dL) 87 Calcium (8.4 - 10.2 mg/dL) 9.1 Total Bilirubin (0.2 - 1.3 mg/dL) 2.0 H AST (14 - 36 U/L) 226 H ALT (9 - 52 U/L) 216 H Alkaline Phosphatase (<127 U/L) 228 H Creatine Kinase (30 - 135 U/L) 68 Troponin I (< 0.11 ng/ml) < 0.01 C-Reactive Prot, Quant (<1.0 mg/dL) > 9.0 H Total Protein (6.3 - 8.2 g/dL) 6.1 L Albumin (3.5 - 5.0 g/dL) 3.5 Globulin (1.9 - 4.2 gm/dL) 2.6 Albumin/Globulin Ratio (1.1 - 2.2 %) 1.3 Lipase (23 - 300 U/L) 35 TSH (0.270 - 4.200 uIU/mL) 1.340 Hematology CBC w Diff MAN DIFF ORDERED WBC (4.8 - 10.8 /CUMM) 9.1 RBC (4.20 - 5.40 /CUMM) 4.81 Hgb (12.0 - 16.0 G/DL) 13.8 Hct (37 - 47 %) 41.2 MCV (81.0 - 99.0 FL) 85.6 MCH (27.0 - 31.0 PG) 28.7 RDW (11.5 - 14.5 %) 14.2 Plt Count (130 - 400 /CUMM) 188 MPV (7.4 - 10.4 FL) 7.5 Gran % (42.2 - 75.2 %) 95.0 H Lymphocytes % (20.5 - 51.1 %) 2.8 L Monocytes % (1.7 - 9.3 %) 1.1 L Eosinophils % (0 - 5 %) 1.1 Basophils % (0.0 - 2.0 %) 0 L Absolute Granulocytes (1.4 - 6.5 /CUMM) 8.7 H Segmented Neutrophils (42.2 - 75.2 %) 87 H Band Neutrophils (0.0 - 5.0 %) 7 H Absolute Lymphocytes (1.2 - 3.4 /CUMM) 0.3 L Lymphocytes (20.5 - 51.1 %) 3 L Monocytes (1.7 - 9.3 %) 2 Absolute Monocytes (0.10 - 0.60 /CUMM) 0.1 L Eosinophils (0 - 5.0 %) 1 Absolute Eosinophils (0.0 - 0.7 /CUMM) 0.1 Absolute Basophils (0.0 - 0.2 /CUMM) 0 Platelet Estimate (ADEQUATE) ADEQUATE Normocytic RBCs VERIFIED Normochromic RBCs VERIFIED PUBS MCHC (33.0 - 37.0 G/DL) 33.6 Serology Hepatitis A IgM Ab (NONREACTIVE) NONREACTIVE Hep Bs Antigen (NONREACTIVE) NONREACTIVE Hep B Core IgM Ab Conf (NONREACTIVE) NONREACTIVE Hepatitis C Antibody (NONREACTIVE) NONREACTIVE Toxicology Urine Opiates Screen (>2000 NG/ML) < 100.00 Methadone Screen (>300 NG/ML) 43 Barbiturate Screen (>200 NG/ML) < 60 Ur Phencyclidine Scrn (>25 NG/ML) < 6.00 Amphetamines Screen (>1000 NG/ML) < 100 U Benzodiazepines Scrn (>200 NG/ML) 124 Urine Cocaine Screen (>300 NG/ML) < 50 Urine Cannabis Screen (>50 NG/ML) < 5.00 Serum Alcohol (<10 MG/DL) < 10.0 Urines Urinalysis LIGHT H Urine Color (YEL,AMB,STR) YEL Urine Clarity (CLEAR) CLEAR Urine pH (5.0 - 8.0) 7.0 Ur Specific [place] (1.001 - 1.035) <= 1.005 Urine Protein (NEG,<30 MG/DL) NEG Urine Ketones (NEG) NEG Urine Nitrite (NEG) NEG Urine Bilirubin (NEG) NEG Urine Urobilinogen (0.1 - 1.0 EU/dl) 0.2 Ur Leukocyte Esterase (NEG) SMALL H Ur Microscopic SEDIMENT EXAMINED Urine RBC (0 - 5 /HPF) RARE Urine WBC (0 - 2 /HPF) 1-3 H Ur Epithelial Cells (NONE,FEW) FEW Urine Bacteria (NEG/NONE) FEW H Urine Hemoglobin (NEG) TRACE-INTACT Urine Glucose (N MG/DL) NEG 06/05 0942 Serology Infectious [place] Titer (NEGATIVE) NEGATIVE Imaging/Other Studies: CT of head: The brain parenchyma has normal attenuation with well-preserved nichole-white matter differentiation. No evidence of an acute major vascular territory infarction. No cerebral edema, intracranial hemorrhage, extra-axial fluid collection, focal mass effect or midline shift. The ventricles have normal size and configuration. No acute findings within the posterior fossa. The calvarium is intact and the visualized paranasal sinuses, mastoid air cells and middle ear cavities are well aerated. The examined orbits and globes are normal. Dysplastic appearance of the mandibular condyles and old intra-articular ossific body within the left temporomandibular joint. IMPRESSION: No acute intracranial pathology. Assessment/Plan Assessment: No evidence of a primary neurologic process, no objective weakness, sensory loss or reflex change in the lower extremities. Gait including tandem intact. Suspect generalized weakness in the setting of abnormal liver functions which is a new problem for her, and urinary tract infection Recommendations: No additional neurodiagnostic testing at this point in time Direct medical problems and then reevaluate. Patient may be followed in our office as an outpatient. Thank you for asking us to participate in this patient's care Consult Acknowledgment - Thank you for your consult request."
[2016-06-06 22:29] VITALS: BP 135/66
[2016-06-07 06:09] VITALS: BP 130/60
--- NOTE | 2016-06-07 07:23 | PN- Housestaff ---
Subjective Follow-up For: Generalized weakness Multiple mechanical falls Positive head strike Persistent migraine Urinary tract infection Subjective: Patient seen and examined. She is seen lying flat in bed resting comfortably. She appears to be in no acute distress. She states that she slept well last night and does not recall many details over the past few days and admits that she did not recognize me. She reports feeling mildly loaded but otherwise has no persistent urinary symptoms or new subjective complaints. Additionally she denies any fever, chills, chest pain, palpitations, shortness of breath, cough, nausea, vomiting, diarrhea. No overnight events reported. Review of Systems Constitutional: Reports: see HPI. Objective Last 24 Hrs of Vital Signs/I&O Vital Signs Date Time Temp Pulse Resp B/P Pulse O2 O2 Flow FiO2 Ox Delivery Rate 06/07 06 98.1 74 20 130/60 94 CPAP 06/06 2240 94 06/06 2229 98.9 90 18 135/66 94 Intake & Output 06/07 1600 06/07 0800 06/07 0000 Intake Total 480 780 Output Total Balance 480 780 Intake, IV 300 Intake, Oral 480 480 Physical Exam General Appearance: Alert, Oriented X3, Cooperative, No Acute Distress Other Physical Findings: General - well developed, well nourished elderly woman in no acute distress HEENT - NCAT, PERRL, EOMI, anicteric sclera, dry mucosa CVS - S1, S2 w/o m/g/r/ Resp - CTA bilaterally GI - Soft, nontender, nondistended, bowel sounds intact Neuro - Awake and alert, oriented to person/place/time, CN II - XII grossly, normal speech Ext - normal pulses, no cyanosis/clubbing/edema Current Medications: Current Medications Sig/Epi Start time Last Medication Dose Route Stop Time Status Admin Alprazolam 0.5 MG BID PRN 06/06 0315 DCD 06/06 PO 06/13 Aspirin Buffered 81 MG DAILY 06/06 1000 DCD 06/07 PO 09 Clonazepam 2 MG QPM 06/06 2200 DCD 06/06 PO 06/13 2158 210 Enoxaparin Sodium 40 MG DAILY 06/06 1000 DCD 06/07 SC 0923 Fluoxetine HCl 40 MG DAILY 06/06 1000 DCD 06/07 PO 0923 Lamotrigine 200 MG QPM 04/11 0030 DCD 06/06 PO 2106 Naproxen 500 MG Q12P PRN 06/06 1530 DCD 06/07 PO 0923 Nitrofurantoin 100 MG BID 06/05 2355 DCD 06/07 PO 06/07 2201 0923 Last 24 Hrs of Lab/Aaron Results Last 24 Hrs of Labs/Mics: Laboratory Tests 06/07/16 0640: Anion Gap 11, Estimated GFR > 60, BUN/Creatinine Ratio 14.3, Total Bilirubin 0.5 , Direct Bilirubin 0.4, AST 93 H, ALT 147 H, Alkaline Phosphatase 338 H, Total Protein 5.5 L, Albumin 3.1 L, CBC w Diff NO MAN DIFF REQ, RBC 4.60, MCV 86.4, MCH 28.5, RDW 14.9 H, MPV 8.1, Gran % 73.7, Lymphocytes % 16.3 L, Monocytes % 3.7, Eosinophils % 5.7 H, Basophils % 0.6, Absolute Granulocytes 4.0, Absolute Lymphocytes 0.9 L, Absolute Monocytes 0.2, Absolute Eosinophils 0.3, Absolute Basophils 0, PUBS MCHC 32.9 L, ESR Westergren 14 Assessment/Plan Assessment: Repeat liver function testing demonstrates improvement of her AST/ALT with persistent elevation of her alkaline phosphatase. Right upper quadrant ultrasound did not demonstrate any evidence of gallstone or acute pathology. 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 She is to follow-up with her primary care provider Dr. Temple on Sunday for repeat liver function testing. Additionally she is to follow-up with Dr. Flores as an outpatient for further evaluation of her migraine headaches. She is to be followed off of antibiotics as her urinary tract infection has resolved. Generalized weakness with recent UTI/URI Patient reports 4 falls at home including one headstrike where she did not loss consciousness, was unwitnessed, and did not have bowel/bladder incontinence. She describes that falls as her "legs giving out" with no obvious preceeding aura. CT head in the ED was negative for any acute intracranial Pathology. Patient sees neurologist Dr. Flores for management of her migraines. Neurology consult placed determined that patient did not have any obivous evidence of neurologic disease contributing to her current condition and should follow up as an outpatient. -General Medicine -PT evaluation -Neuro consult Transaminitis Baseline liver functions tests from 2009 did no demonstrate any abnormality. Patient states that she has not consumed alcohol in "20 years". She denies excessive acetaminophen use. CRP > 9, ESR 14, CPK 47. Hepatitis panel negative. RUQ US did not demonstrate any acute abnormality. -F/U Lyme titer as outpatient History of migraine headaches -Lamictal 200 mg by mouth every evening -Naproxen 500 mg by mouth every 12 hours as needed for headache Anxiety/depression -Alprazolam 0.5mg PO BID PRN -Clonazepam 2mg PO QPM -Fluoxetine 40mg PO Daily Pain plan-naproxen Diet-regular diet DVT prophylaxis-Lovenox CODE STATUS-full code Problem List: 1. Generalized weakness Pain Ratin Pain Location: Head Pain Goal: Remain pain free Pain Plan: See assessment Tomorrow's Labs & Rationales: None
[2016-06-07 09:15] LABS: ABSOLUTE BASOPHIL COUNT 0 /CUMM (0.0-0.2); ABSOLUTE EOSINOPHIL COUNT 0.3 /CUMM (0.0-0.7); ABSOLUTE LYMPH COUNT 0.9 /CUMM (1.2-3.4); ABSOLUTE MONOCYTE COUNT 0.2 /CUMM (0.10-0.60); BASOPHIL % 0.6 % (0.0-2.0); EOSINOPHIL % 5.7 % (0-5); GRANULOCYTE % 73.7 % (42.2-75.2); HEMATOCRIT 39.8 % (37-47); MEAN CORPUSCULAR HGB 28.5 PG (27.0-31.0); MEAN CORPUSCULAR HGB CONC 32.9 G/DL (33.0-37.0); MEAN CORPUSCULAR VOLUME 86.4 FL (81.0-99.0); MEAN PLATELET VOLUME 8.1 FL (7.4-10.4); PLATELET COUNT 170 /CUMM (130-400); RBC DISTRIBUTION WIDTH 14.9 % (11.5-14.5); WHITE BLOOD CELL COUNT 5.4 /CUMM (4.8-10.8)
--- NOTE | 2016-06-07 11:05 | Patient Discharge Instructions ---
Discharge Instructions General Discharge Information Special Instructions: Follow up with Dr. Temple, Dr. Flores after discharge. Call [facility] at to schedule an appointment within the next two weeks. Make an appointment on Sunday with Dr. Temple to have your liver function tests redrawn. Continue all your previous home medications, except for Nitrofurantoin (the antibiotic given for the urinary tract infection). Acute Coronary Syndrome Inclusion Criteria At DC or during hospital stay patient has or had the following: ACS DIAGNOSIS No Discharge Core Measures Meds if any: Prescribed or Continued at Discharge Meds if any: NOT Prescribed or Continued at Discharge Congestive Heart Failure Inclusion Criteria At DC or during hospital stay patient has or had the following: CHF DIAGNOSIS No Discharge Core Measures Meds if any: Prescribed or Continued at Discharge Meds if any: NOT Prescribed or Continued at Discharge Cerebrovascular accident Inclusion Criteria At DC or during hospital stay patient has or had the following: CVA/TIA Diagnosis No Discharge Core Measures Meds if any: Prescribed or Continued at Discharge Meds if any: NOT Prescribed or Continued at Discharge Venous thromboembolism Inclusion Criteria VTE Diagnosis No VTE Type NONE VTE Confirmed by (Test) NONE Discharge Core Measures - Per Current guidelines, there needs to be overlap - treatment for the first 5 days of Warfarin therapy. - If discharged on Warfarin prior to 5 days of - overlap therapy, the patient will need to be - assessed for post discharge needs including - *Post discharge parental anticoagulation - *Warfarin and/or parental anticoagulation education - *Follow up date to check INR post discharge At least 5 days overlap therapy as Inpatient No Meds if any: Prescribed or Continued at Discharge Note: Overlap Therapy is Warfarin and Anticoagulant Meds if any: NOT Prescribed or Continued at Discharge
--- NOTE | 2016-06-08 08:35 | Cons- Psychiatry ---
Psychiatric Consult Date of Consult: 06/08/16 Reason for Consult: This note opened in error. Patient had already been discharged. Allergies: Coded Allergies: codeine (NAUSEA 06/05/16) Past History Past Medical History Neurological: migraine EENT: sinusitis Cardiovascular: hypertension, hyperlipidemia Respiratory: obstructive sleep apnea Gastrointestinal: NONE Hepatic: NONE Renal: nephrectomy, 1/3 LEFT KIDNEY REMOVED Musculoskeletal: osteoporosis Psychiatric: anxiety Endocrine: NONE Blood Disorders: NONE Cancer(s): renal cancer [employer]/Reproductive: NONE Past Surgical History Surgical History: non-contributory Psychiatric Treatment History Risk Factors: age (under 24/over 65) Substance Use/Abuse History Drug Use/Abuse Substance 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) First Use xx Last Used xx Lamotrigine 200 MG QPM 06/06 0030 DCD 06/06 PO 2106 Naproxen 500 MG Q12P PRN 06/06 1530 DCD 06/07 PO 0923 Nitrofurantoin 100 MG BID 06/05 2355 DCD 06/07 PO 06/07 2201 0923 Past History Past Medical History Neurological: migraine EENT: sinusitis Cardiovascular: hypertension, hyperlipidemia Respiratory: obstructive sleep apnea Gastrointestinal: NONE Hepatic: NONE Renal: nephrectomy, 1/3 LEFT KIDNEY REMOVED Musculoskeletal: osteoporosis Psychiatric: anxiety Endocrine: NONE Blood Disorders: NONE Cancer(s): renal cancer [employer]/Reproductive: NONE Past Surgical History Surgical History: non-contributory Psychosocial History Strengths/Capabilities: xx Physical Limitations (Interventions): xx Psychiatric Treatment History Diagnosis: xx Risk Factors: age (under 24/over 65) (xx) Substance Use/Abuse History Drug Use/Abuse Substances Used/Abused Yes 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 I also met with the patient myself in individual session. A total of minutes was spent with the patient with more than 50% spent in counseling and/or coordination of care. SUBJECTIVE: OBJECTIVE: ASSESSMENT: Depression:[default value]/10; Anxiety:[default value]/10 (with 10 the worst.) [default value] suicidal ideation, homicidal ideation, auditory hallucinations, visual hallucinations, paranoid ideation. Speech is well articulated, goal-directed, average in rate, volume and tone. The patient understands the risks/benefits/side effects of the medication and is agreeable to continue taking them. PLAN: Continue with current management as patient is improving. Continue to provide support and encouragement. Lab Results: Laboratory Tests 06/07 06/06 06/06 06/05 0640 0825 0600 1551 Chemistry Sodium (137 - 145 mmol/L) 141 Potassium (3.5 - 5.1 mmol/L) 3.7 Chloride (98 - 107 mmol/L) 107 Carbon Dioxide (22 - 30 mmol/L) 24 Anion Gap (5 - 16) 11 BUN (7 - 17 mg/dL) 10 Creatinine (0.5 - 1.0 mg/dL) 0.7 Estimated GFR (>60 ml/min) > 60 BUN/Creatinine Ratio (7 - 25 %) 14.3 Total Bilirubin (0.2 - 1.3 mg/dL) 0.5 0.7 Direct Bilirubin (< 0.4 mg/dL) 0.4 0.5 H AST (14 - 36 U/L) 93 H 153 H ALT (9 - 52 U/L) 147 H 176 H Alkaline Phosphatase (<127 U/L) 338 H 261 H Ammonia (9 - 30 umol/L) < 9 L Creatine Kinase (30 - 135 U/L) 47 Total Protein (6.3 - 8.2 g/dL) 5.5 L 5.5 L Albumin (3.5 - 5.0 g/dL) 3.1 L 3.0 L Hematology CBC w Diff NO MAN DIFF REQ WBC (4.8 - 10.8 /CUMM) 5.4 RBC (4.20 - 5.40 /CUMM) 4.60 Hgb (12.0 - 16.0 G/DL) 13.1 Hct (37 - 47 %) 39.8 MCV (81.0 - 99.0 FL) 86.4 MCH (27.0 - 31.0 PG) 28.5 RDW (11.5 - 14.5 %) 14.9 H Plt Count (130 - 400 /CUMM) 170 MPV (7.4 - 10.4 FL) 8.1 Gran % (42.2 - 75.2 %) 73.7 Lymphocytes % (20.5 - 51.1 %) 16.3 L Monocytes % (1.7 - 9.3 %) 3.7 Eosinophils % (0 - 5 %) 5.7 H Basophils % (0.0 - 2.0 %) 0.6 Absolute Granulocytes (1.4 - 6.5 /CUMM) 4.0 Absolute Lymphocytes (1.2 - 3.4 /CUMM) 0.9 L Absolute Monocytes (0.10 - 0.60 /CUMM) 0.2 Absolute Eosinophils (0.0 - 0.7 /CUMM) 0.3 Absolute Basophils (0.0 - 0.2 /CUMM) 0 PUBS MCHC (33.0 - 37.0 G/DL) 32.9 L ESR Westergren (0 - 20 MM) 14 Serology Lyme Disease Antibody (RATIO) 0.12 06/05 06/05 1100 0943 Chemistry Sodium (137 - 145 mmol/L) 137 Potassium (3.5 - 5.1 mmol/L) 3.9 Chloride (98 - 107 mmol/L) 102 Carbon Dioxide (22 - 30 mmol/L) 24 Anion Gap (5 - 16) 12 BUN (7 - 17 mg/dL) 10 Creatinine (0.5 - 1.0 mg/dL) 0.7 Estimated GFR (>60 ml/min) > 60 BUN/Creatinine Ratio (7 - 25 %) 14.3 Glucose (65 - 99 mg/dL) 87 Calcium (8.4 - 10.2 mg/dL) 9.1 Total Bilirubin (0.2 - 1.3 mg/dL) 2.0 H AST (14 - 36 U/L) 226 H ALT (9 - 52 U/L) 216 H Alkaline Phosphatase (<127 U/L) 228 H Creatine Kinase (30 - 135 U/L) 68 Troponin I (< 0.11 ng/ml) < 0.01 C-Reactive Prot, Quant (<1.0 mg/dL) > 9.0 H Total Protein (6.3 - 8.2 g/dL) 6.1 L Albumin (3.5 - 5.0 g/dL) 3.5 Globulin (1.9 - 4.2 gm/dL) 2.6 Albumin/Globulin Ratio (1.1 - 2.2 %) 1.3 Lipase (23 - 300 U/L) 35 TSH (0.270 - 4.200 uIU/mL) 1.340 Hematology CBC w Diff MAN DIFF ORDERED WBC (4.8 - 10.8 /CUMM) 9.1 RBC (4.20 - 5.40 /CUMM) 4.81 Hgb (12.0 - 16.0 G/DL) 13.8 Hct (37 - 47 %) 41.2 MCV (81.0 - 99.0 FL) 85.6 MCH (27.0 - 31.0 PG) 28.7 RDW (11.5 - 14.5 %) 14.2 Plt Count (130 - 400 /CUMM) 188 MPV (7.4 - 10.4 FL) 7.5 Gran % (42.2 - 75.2 %) 95.0 H Lymphocytes % (20.5 - 51.1 %) 2.8 L Monocytes % (1.7 - 9.3 %) 1.1 L Eosinophils % (0 - 5 %) 1.1 Basophils % (0.0 - 2.0 %) 0 L Absolute Granulocytes (1.4 - 6.5 /CUMM) 8.7 H Segmented Neutrophils (42.2 - 75.2 %) 87 H Band Neutrophils (0.0 - 5.0 %) 7 H Absolute Lymphocytes (1.2 - 3.4 /CUMM) 0.3 L Lymphocytes (20.5 - 51.1 %) 3 L Monocytes (1.7 - 9.3 %) 2 Absolute Monocytes (0.10 - 0.60 /CUMM) 0.1 L Eosinophils (0 - 5.0 %) 1 Absolute Eosinophils (0.0 - 0.7 /CUMM) 0.1 Absolute Basophils (0.0 - 0.2 /CUMM) 0 Platelet Estimate (ADEQUATE) ADEQUATE Normocytic RBCs VERIFIED Normochromic RBCs VERIFIED PUBS MCHC (33.0 - 37.0 G/DL) 33.6 Serology Hepatitis A IgM Ab (NONREACTIVE) NONREACTIVE Hep Bs Antigen (NONREACTIVE) NONREACTIVE Hep B Core IgM Ab Conf (NONREACTIVE) NONREACTIVE Hepatitis C Antibody (NONREACTIVE) NONREACTIVE Toxicology Urine Opiates Screen (>2000 NG/ML) < 100.00 Methadone Screen (>300 NG/ML) 43 Barbiturate Screen (>200 NG/ML) < 60 Ur Phencyclidine Scrn (>25 NG/ML) < 6.00 Amphetamines Screen (>1000 NG/ML) < 100 U Benzodiazepines Scrn (>200 NG/ML) 124 Urine Cocaine Screen (>300 NG/ML) < 50 Urine Cannabis Screen (>50 NG/ML) < 5.00 Serum Alcohol (<10 MG/DL) < 10.0 Urines Urinalysis LIGHT H Urine Color (YEL,AMB,STR) YEL Urine Clarity (CLEAR) CLEAR Urine pH (5.0 - 8.0) 7.0 Ur Specific [place] (1.001 - 1.035) <= 1.005 Urine Protein (NEG,<30 MG/DL) NEG Urine Ketones (NEG) NEG Urine Nitrite (NEG) NEG Urine Bilirubin (NEG) NEG Urine Urobilinogen (0.1 - 1.0 EU/dl) 0.2 Ur Leukocyte Esterase (NEG) SMALL H Ur Microscopic SEDIMENT EXAMINED Urine RBC (0 - 5 /HPF) RARE Urine WBC (0 - 2 /HPF) 1-3 H Ur Epithelial Cells (NONE,FEW) FEW Urine Bacteria (NEG/NONE) FEW H Urine Hemoglobin (NEG) TRACE-INTACT Urine Glucose (N MG/DL) NEG 06/05 0942 Serology Infectious [place] Titer (NEGATIVE) NEGATIVE Microbiology 06/06 0510 URINE ROUT: Urine Culture - RES Diffential Diagnosis: xx Impression: xx Provisional Treatment Plan: xx
--- NOTE | 2016-06-09 13:34 | Discharge Summary ---
Visit Information Visit Dates Admission Date: 06/05/16 Discharge Date: 06/07/16 Hospital Course Course Attending Physician: DAYNA CORTES M.D Primary Care Physician: DA OLIVARES MD Hospital Course: 61-year-old woman with significant past medical history of migraine headaches and recent upper respiratory infection/urinary tract infection seen for evaluation of multiple falls and generalized weakness over the past 3 days. Patient reports 4 falls with no consciousness or preceding aura in the preceding days to admission. One week prior to admission patient reports an upper respiratory infection and associated pinkeye for which she was seen by her primary care provider and given a cough suppressant. Additionally she notes symptoms with urination 4 days prior to admission for which she was seen at urgent care and provided a prescription of nitrofurantoin for which she took 3 doses prior to being seen in the ED. ED course: -Vitals: Temp 98.1-98.9, HR 74-90, RR 18-20, BP 130-135/60-66, O2 94-97 % on room air -Significant Labs: WBC 9.1 with 7 bands, Hgb/HCT 13.8/41.2, T bilirubin 2.0, AST /a.l. T226/216, ALK 228, troponin <0.01, CRP >9.0, hepatitis panel negative, urinalysis unremarkable -Studies: EKG-NSR, CT head no acute abnormality, CT abdomen/pelvis no acute abnormality -Interventions: GI consult Generalized weakness with recent UTI/URI Patient was admitted to the general medicine floor for further evaluation of her generalized weakness and multiple recent falls. Recent falls are without loss of consciousness or preceding aura, patient describes her legs as "giving out". She suffered one head strike where she fell at bedside and hit her head on the nightstand. CT head did not demonstrate any acute intracranial pathology. She has a history of migraine headaches for which she is seen by her neurologist Dr. Flores. Dr. Flores was consulted for the inpatient stay and recommended no further investigations and will see the patient on an outpatient basis. Transaminitis Baseline liver functions tests from 2009 did no demonstrate any abnormality. Patient states that she has not consumed alcohol in "20 years". She denies excessive acetaminophen use. CRP > 9, ESR 14, CPK 47. Hepatitis panel negative. RUQ US did not demonstrate any acute abnormality. Lyme titer needs to be followed up as an outpatient. Allergies: Coded Allergies: codeine (NAUSEA 06/05/16) Significant Procedures: EXAM TYPE: CAT - CT HEAD WO IV CONTRAST IMPRESSION: No acute intracranial pathology. EXAM TYPE: CAT - CT ABD & PELVIS W IV CONTRAST IMPRESSION: No acute abnormality CT scan abdomen pelvis. EXAM TYPE: US - US-LIMITED ABDOMEN IMPRESSION: 1. No evidence of cholelithiasis, cholecystitis or biliary tract obstruction. 2. A septated 1.2 cm cyst of the left lobe of the liver has not significantly changed in size compared to 05/29/2014. Disposition Summary Disposition Principal Diagnosis: Generalized weakness/mechanical falls Additional Diagnosis: Deconditioning Discharge Disposition: home or self care Discharge Instructions General Discharge Information Code Status: Full Code Patient's Diet: Regular Diet Patient's Activity: Return to full activity as tolerated Follow-Up Instructions/Appts: Follow up with Dr. Olivares, Dr. Flores after discharge. Call [facility] at to schedule an appointment within the next two weeks. Make an appointment on Sunday with Dr. Olivares to have your liver function tests redrawn. Continue all your previous home medications, except for Nitrofurantoin (the antibiotic given for the urinary tract infection). Medications at Discharge Discharge Medications: Stop taking the following medications: Nitrofurantoin Monohyd/M-Cryst (Nitrofurantoin [place]-Mcr 100 MG) 100 MG CAPSULE ORAL TWICE DAILY Qty = 14 Continue taking these medications: Alendronate Sodium (Alendronate Sodium) 70 MG TABLET 1 Tablet ORAL EVERY SUNDAY Qty = 4 Instructions: in the morning, at least 30 minutes before the first food, beverage, or medication of the day Comments: NOT GIVEN IN HOSPITAL Lamotrigine (Lamotrigine) 200 MG TABLET 1 Tablet ORAL Every night Qty = 30 Comments: Last Taken: 06/06/16 Time: 9:06 PM Rosuvastatin Calcium (Crestor) 20 MG TABLET 1 Tablet ORAL DAILY Qty = 30 Comments: NOT GIVEN IN HOSPITAL Clonazepam (Clonazepam) 1 MG TABLET 2 Tablet ORAL Every night Qty = 28 Comments: Last Taken: 06/06/16 Time: 9:06 PM Alprazolam (Alprazolam) 0.5 MG TABLET 1 Tablet ORAL TWICE DAILY as needed for ANXIETY Qty = 60 Comments: Last Taken: 06/06/16 Time: 9:06 PM Rizatriptan Benzoate (Maxalt) 10 MG TABLET 1 Tablet ORAL As Directed as needed for MIGRAINE Qty = 9 Comments: NOT GIVEN IN HOSPITAL Cholecalciferol (Vitamin D3) (Vitamin D3) 3,000 UNIT TABLET 1 Tablet ORAL DAILY Comments: NOT GIVEN IN HOSPITAL Fluoxetine HCl (Prozac) 40 MG CAPSULE 1 Capsule ORAL DAILY Comments: Last Taken: 06/07/16 Time: 9:23 AM Aspirin (Ecotrin*) 81 MG TABLET.DR 1 Tablet ORAL DAILY Comments: Last Taken: 06/07/16 Time: 9:23 AM Copies To: ZAIRA REA,VICTOR HUGO Ferguson; MARSHALL REA,DA Morrison Attending MD Review Statement Documenting Attending: DAYNA CORTES M.D Other Findings: Patient is medically stable to be discharged
== END 2016-06-07 12:12 | DRG 948 ==
LOC: CANRESERV → ENRESERVDT → ENRESERVTM → ERH 09:31 → 2NB 19:56 → ENPENDDIS 19:56 → ERHI 19:56 → 2NB 22:10
PROVIDERS: Physician Assistant Medical; Student in an Organized Health Care Education/Training Program; ADMIT Internal Medicine
DX: R53.1 Weakness (principal); I10 Essential (primary) hypertension; N39.0 Urinary tract infection, site not specified; E78.5 Hyperlipidemia, unspecified; M81.0 Age-related osteoporosis without current pathological fracture; F41.9 Anxiety disorder, unspecified; Z85.528 Personal history of other malignant neoplasm of kidney; F32.9 Major depressive disorder, single episode, unspecified; G47.33 Obstructive sleep apnea (adult) (pediatric); Z91.81 History of falling; G43.909 Migraine, unspecified, not intractable, without status migrainosus; Z87.891 Personal history of nicotine dependence; R74.0 Nonspecific elevation of levels of transaminase and lactic acid dehydrogenase [LDH]
CPT/HCPCS: 2NBP; 86618; 74177; 80307; 81001; 82436; 87086; 93005; 93010; 97116-GO; 97161-GP; G0480; J1650